=== PATIENT | male | born 1985 | race Caucasian/White ===

== ENCOUNTER 2017-04-05 12:12 | Emergency (ER) | payer BC ==
[~2017-04-05 12:12] MED LIST: BACTRIM DS TABL1 TA1 PO
== END 2017-04-05 13:27 | disposition home or self-care (01) ==
LOC: SED 12:12
DX: S41.111A Laceration without foreign body of right upper arm, initial encounter (principal); Z23 Encounter for immunization; Z88.0 Allergy status to penicillin; W29.3XXA Contact with powered garden and outdoor hand tools and machinery, initial encounter; Y92.009 Unspecified place in unspecified non-institutional (private) residence as the place of occurrence of the external cause
CPT/HCPCS: 12002; 90471; 90715; 99283